=== PATIENT | male | born 1990 | race Caucasian/White ===

== ENCOUNTER 2017-06-30 10:03 | Inpatient (IN) | payer MEDICAID, OTHER ==
[~2017-06-30] VITALS: Ht 190.5 cm; Wt 64.4 kg
[2017-06-30] MEDS ORDERED: QUET25TA PO (10:13)
[2017-06-30] MEDS ORDERED: MIRT15 PO (10:13)
[2017-06-30 10:29] LABS: BASOPHILS % (AUTO) 0.3 % (0.0-2.0); EOSINOPHILS % (AUTO) 0.5 % (1.0-6.0); HEMATOCRIT 48.8 % (41-53); HEMOGLOBIN 16.5 g/dL (13.5-17.5); LYMPHOCYTES # (AUTO) 2.3 K/uL (1.0-4.8); LYMPHOCYTES % (AUTO) 14.3 % (22.0-44.0); MEAN CORPUSCULAR HEMOGLOBIN 30.2 pg (26.0-34.0); MEAN CORPUSCULAR HGB CONC 33.8 G/dL (31.0-37.0); MEAN CORPUSCULAR VOLUME 89 fL (80-100); MONOCYTES # (AUTO) 1.4 K/uL (0.1-1.0); NEUTROPHILS % (AUTO) 75.9 % (40.0-70.0); PLATELET COUNT (AUTO) 252 K/uL (150-450); RED BLOOD CELL COUNT(AUTO) 5.46 MIL/uL (4.50-5.90); RED CELL DISTRIBUTION WIDTH 14.1 % (11.5-14.5); WHITE BLOOD COUNT (AUTO) 15.8 K/uL (4.5-11.0)
[2017-06-30 10:46] LABS: ANION GAP 15 mmol/L (8-16); CALCIUM, TOTAL 9.8 mg/dL (8.8-10.5); CARBON DIOXIDE 28 mmol/L (22-29); CHLORIDE 94 mmol/L (98-107); GLOMERULAR FILTR. RATE CALC > 60 mL/min (>60); POTASSIUM 3.1 mmol/L (3.5-5.1); SODIUM SERUM 137 mmol/L (136-145); UREA NITROGEN, BLOOD 15 mg/dL (7-18)
[2017-06-30 10:52] LABS: ALANINE AMINOTRANSFERASE 31 U/L (12-78); ALBUMIN 5.7 g/dL (3.4-5.0); ASPARTATE AMINOTRANSFERASE 30 U/L (15-37); BILIRUBIN,TOTAL 1.1 mg/dL (0.1-1.0)
[2017-06-30] MEDS ORDERED: ZOLPIDEM TARTRATE 10 MG TABLET PO PRN (11:30)
[2017-06-30] MEDS ORDERED: LORazepam 2 MG/ML VIAL ONE (11:45)
[2017-06-30] MEDS ORDERED: HALOPERIDOL LACTATE 5 MG/ML VIAL ONE (11:46)
[2017-06-30] MEDS ORDERED: DiphenhydrAMINE HCL 50 MG/ML VIAL IM ONE ×2 (12:00)
[2017-06-30] MEDS ORDERED: LORazepam 2 MG/ML VIAL IM ONE ×2 (12:00)
[2017-06-30] MEDS ORDERED: HALOPERIDOL LACTATE 5 MG/ML VIAL IM ONE ×2 (12:00)
[2017-06-30 12:06] LABS: THYROID STIMULATING HORMONE 1.98 uIU/mL (0.36-3.74)
[2017-06-30] MEDS ORDERED: POTASSIUM CHLORIDE 20 MEQ ER TABLET PO ONE (12:45)
[2017-06-30 13:32] VITALS: BP 105/69
[2017-06-30] MEDS: NICOTINE 21 MG/24 HOUR PATCH TD SCH (15:00)
[2017-06-30] MEDS ORDERED: INFLUENZA VIRUS VACCINE QVS 2017-18 (3YR+)/PF 60 MCG/0.5 ML SYRINGE IM ONE (15:30)
[2017-06-30 16:04] VITALS: BP 112/72
[2017-07-01 01:16] VITALS: BP 113/71
[2017-07-01] MEDS: NICOTINE 21 MG/24 HOUR PATCH TD SCH (08:07)
[2017-07-01 08:49] VITALS: BP 129/92
[2017-07-01] MEDS: OLANZapine 5 MG TABLET PO SCH ×3 (09:15→20:25)
[2017-07-01] MEDS: ONDANSETRON HCL 4 MG TABLET PO PRN (13:33)
[2017-07-01 16:19] VITALS: BP 137/76
[2017-07-01] MEDS: HALOPERIDOL 5 MG TABLET PO PRN (16:49)
[2017-07-01] MEDS: LORazepam 2 MG TABLET PO PRN (16:49)
[2017-07-02 03:50] VITALS: BP 105/64
[2017-07-02 08:02] VITALS: BP 120/71
[2017-07-02 08:19] LABS: BASOPHILS # (AUTO) 0.04 K/uL (0.00-0.20); BASOPHILS % (AUTO) 0.4 % (0.0-2.0); EOSINOPHILS # (AUTO) 0.09 K/uL (0.00-0.70); EOSINOPHILS % (AUTO) 0.95 % (1.0-6.0); HEMATOCRIT 44.8 % (41-53); HEMOGLOBIN 14.7 g/dL (13.5-17.5); LYMPHOCYTES # (AUTO) 1.7 K/uL (1.0-4.8); MEAN CORPUSCULAR HEMOGLOBIN 29.7 pg (26.0-34.0); MEAN CORPUSCULAR HGB CONC 32.7 G/dL (31.0-37.0); MEAN CORPUSCULAR VOLUME 91 fL (80-100); NEUTROPHILS # (AUTO) 6.3 K/uL (1.8-7.7); NEUTROPHILS % (AUTO) 68.6 % (40.0-70.0); PLATELET COUNT (AUTO) 189 K/uL (150-450); RED BLOOD CELL COUNT(AUTO) 4.94 MIL/uL (4.50-5.90); RED CELL DISTRIBUTION WIDTH 13.6 % (11.5-14.5); WHITE BLOOD COUNT (AUTO) 9.2 K/uL (4.5-11.0)
[2017-07-02] MEDS: OLANZapine 5 MG TABLET PO SCH ×2 (08:21→20:32)
[2017-07-02] MEDS: NICOTINE 21 MG/24 HOUR PATCH TD SCH (08:21)
[2017-07-02 16:00] VITALS: BP 114/66
[2017-07-02] MEDS: HALOPERIDOL 5 MG TABLET PO PRN (16:16)
[2017-07-02] MEDS: LORazepam 2 MG TABLET PO PRN (16:16)
[2017-07-03 04:57] VITALS: BP 139/62
[2017-07-03] MEDS: ONDANSETRON HCL 4 MG TABLET PO PRN (06:04)
[2017-07-03 08:01] VITALS: BP 134/73
[2017-07-03] MEDS: NICOTINE 21 MG/24 HOUR PATCH TD SCH (08:31)
[2017-07-03] MEDS: HALOPERIDOL 5 MG TABLET PO PRN (08:32)
[2017-07-03] MEDS: LORazepam 2 MG TABLET PO PRN ×2 (08:32→20:42)
[2017-07-03] MEDS: OLANZapine 5 MG TABLET PO SCH (08:32)
[2017-07-03 16:00] VITALS: BP 118/68
[2017-07-03] MEDS: OLANZapine 10 MG TABLET PO SCH (20:42)
[2017-07-04 05:28] VITALS: BP 121/69
[2017-07-04] MEDS: LORazepam 2 MG TABLET PO PRN (05:29)
[2017-07-04] MEDS: ONDANSETRON HCL 4 MG TABLET PO PRN (05:29)
[2017-07-04 08:06] VITALS: BP 122/66
[2017-07-04] MEDS: OLANZapine 10 MG TABLET PO SCH (08:51)
[2017-07-04] MEDS: NICOTINE 21 MG/24 HOUR PATCH TD SCH (08:51)
[2017-07-04] MEDS ORDERED: OLAN10TA3 PO (08:59)
== END 2017-07-04 12:50 | disposition home or self-care (01) | DRG 753 ==
LOC: EMS 10:07 → B3A 12:16
DX: F31.5 Bipolar disorder, current episode depressed, severe, with psychotic features (principal); Z91.14 Patient's other noncompliance with medication regimen; F84.5 Asperger's syndrome; F12.20 Cannabis dependence, uncomplicated; F17.210 Nicotine dependence, cigarettes, uncomplicated; F90.9 Attention-deficit hyperactivity disorder, unspecified type; G47.00 Insomnia, unspecified; L72.3 Sebaceous cyst; R48.0 Dyslexia and alexia; Z91.5 Personal history of self-harm; Z28.21 Immunization not carried out because of patient refusal; Z68.1 Body mass index [BMI] 19.9 or less, adult
CPT/HCPCS: 84132; 84439; 84443; 90471; 96372; 99285; G0480; J1200; J1630; J2060; Q0162

== ENCOUNTER 2017-07-31 11:26 | Inpatient (IN) | payer MEDICAID ==
[~2017-07-31] VITALS: Ht 193 cm; Wt 62.0 kg
[~2017-07-31 11:26] MED LIST: OLAN10TA3 PO
[2017-07-31 14:35] VITALS: BP 120/59
[2017-07-31 14:48] VITALS: BP 112/71
[2017-07-31] MEDS ORDERED: LITH600 PO (15:01)
[2017-07-31] MEDS ORDERED: LITH300C3 PO (15:01)
[2017-07-31 17:16] VITALS: BP 118/64
[2017-07-31] MEDS ORDERED: INFLUENZA VIRUS VACCINE QVS 2017-18 (3YR+)/PF 60 MCG/0.5 ML SYRINGE IM ONE (17:45)
[2017-07-31] MEDS: OLANZapine 10 MG TABLET PO SCH (20:43)
[2017-07-31] MEDS: LITHIUM CARBONATE 600 MG CAPSULE PO SCH (20:43)
[2017-07-31] MEDS: ZOLPIDEM TARTRATE 10 MG TABLET PO PRN (20:43)
[2017-07-31] MEDS: LORazepam 2 MG TABLET PO PRN (20:43)
[2017-08-01 06:36] VITALS: BP 121/68
[2017-08-01 08:09] VITALS: BP 107/69
[2017-08-01 08:22] LABS: LITHIUM 0.55 mmol/L (0.60-1.20)
[2017-08-01 08:30] LABS: BASOPHILS % (AUTO) 0.4 % (0.0-2.0); EOSINOPHILS % (AUTO) 1.4 % (1.0-6.0); HEMATOCRIT 48.1 % (41-53); HEMOGLOBIN 15.8 g/dL (13.5-17.5); LYMPHOCYTES # (AUTO) 1.9 K/uL (1.0-4.8); LYMPHOCYTES % (AUTO) 17.8 % (22.0-44.0); MEAN CORPUSCULAR HGB CONC 32.8 G/dL (31.0-37.0); MEAN CORPUSCULAR VOLUME 91 fL (80-100); MONOCYTES # (AUTO) 0.6 K/uL (0.1-1.0); MONOCYTES % (AUTO) 5.8 % (2.0-9.0); NEUTROPHILS # (AUTO) 8.2 K/uL (1.8-7.7); NEUTROPHILS % (AUTO) 74.6 % (40.0-70.0); PLATELET COUNT (AUTO) 229 K/uL (150-450); RED BLOOD CELL COUNT(AUTO) 5.26 MIL/uL (4.50-5.90); RED CELL DISTRIBUTION WIDTH 13.7 % (11.5-14.5)
[2017-08-01 08:37] LABS: ALANINE AMINOTRANSFERASE 40 U/L (12-78); ALBUMIN 4.5 g/dL (3.4-5.0); ALKALINE PHOSPHATASE 62 U/L (46-116); ANION GAP 7 mmol/L (8-16); ASPARTATE AMINOTRANSFERASE 41 U/L (15-37); BILIRUBIN,TOTAL 0.8 mg/dL (0.1-1.0); CALCIUM, TOTAL 9.2 mg/dL (8.8-10.5); CARBON DIOXIDE 30 mmol/L (22-29); CHLORIDE 103 mmol/L (98-107); CHOL/HDL RATIO 2.4 (4.2-7.3); CHOLESTEROL 122 mg/dL (131-200); CREATININE 1.01 mg/dL (0.60-1.30); FREE T4 (FREE THYROXINE) 1.36 ng/dL (0.76-1.46); GLOMERULAR FILTR. RATE CALC > 60 mL/min (>60); GLUCOSE,RANDOM 107 mg/dL (70-110); HDL CHOLESTEROL 50 mg/dL (40-60); LDL CHOL (CALC.) 57 mg/dL (0-130); POTASSIUM 4.4 mmol/L (3.5-5.1); SODIUM SERUM 140 mmol/L (136-145); THYROID STIMULATING HORMONE 1.76 uIU/mL (0.36-3.74); TOTAL PROTEIN, SERUM 7.7 g/dL (6.4-8.2); TRIGLYCERIDES 75 mg/dL (15-150); UREA NITROGEN, BLOOD 13 mg/dL (7-18)
[2017-08-01 08:56] LABS: HEMOGLOBIN A1C 5.3 % (4.5-6.2)
[2017-08-01] MEDS: OLANZapine 10 MG TABLET PO SCH ×2 (09:01→20:33)
[2017-08-01] MEDS: LITHIUM CARBONATE 300 MG CAPSULE PO SCH (09:01)
[2017-08-01] MEDS: LORazepam 2 MG TABLET PO PRN ×2 (09:01→20:33)
[2017-08-01] MEDS: NICOTINE 21 MG/24 HOUR PATCH TD SCH (09:02)
[2017-08-01 16:10] VITALS: BP 128/68
[2017-08-01] MEDS: LITHIUM CARBONATE 600 MG CAPSULE PO SCH (20:33)
[2017-08-02 06:15] VITALS: BP 115/60
[2017-08-02] MEDS: LORazepam 2 MG TABLET PO PRN ×3 (09:12→20:32)
[2017-08-02] MEDS: OLANZapine 10 MG TABLET PO SCH ×2 (09:12→20:32)
[2017-08-02] MEDS: LITHIUM CARBONATE 300 MG CAPSULE PO SCH (09:12)
[2017-08-02] MEDS: NICOTINE 21 MG/24 HOUR PATCH TD SCH (09:13)
[2017-08-02 09:32] VITALS: BP 116/62
[2017-08-02] MEDS: HALOPERIDOL 5 MG TABLET PO PRN (13:51)
[2017-08-02 16:36] VITALS: BP 118/72
[2017-08-02] MEDS: LITHIUM CARBONATE 600 MG CAPSULE PO SCH (20:32)
[2017-08-02] MEDS: ZOLPIDEM TARTRATE 10 MG TABLET PO PRN (20:32)
[2017-08-03 03:28] VITALS: BP 111/72
[2017-08-03] MEDS: LORazepam 2 MG TABLET PO PRN ×3 (04:18→17:12)
[2017-08-03] MEDS: HALOPERIDOL 5 MG TABLET PO PRN ×2 (04:18→17:12)
[2017-08-03 08:31] VITALS: BP 117/64
[2017-08-03] MEDS: NICOTINE 21 MG/24 HOUR PATCH TD SCH (09:38)
[2017-08-03] MEDS: LITHIUM CARBONATE 300 MG CAPSULE PO SCH (09:38)
[2017-08-03] MEDS: OLANZapine 10 MG TABLET PO SCH ×2 (09:39→20:22)
[2017-08-03 16:04] VITALS: BP 111/66
[2017-08-03] MEDS: LITHIUM CARBONATE 600 MG CAPSULE PO SCH (20:22)
[2017-08-04 06:11] VITALS: BP 118/72
[2017-08-04 08:11] VITALS: BP 108/65
[2017-08-04] MEDS: LORazepam 2 MG TABLET PO PRN ×2 (09:28→17:20)
[2017-08-04] MEDS: OLANZapine 10 MG TABLET PO SCH ×2 (09:28→20:42)
[2017-08-04] MEDS: LITHIUM CARBONATE 300 MG CAPSULE PO SCH (09:28)
[2017-08-04] MEDS: HALOPERIDOL 5 MG TABLET PO PRN ×2 (09:28→17:20)
[2017-08-04] MEDS: NICOTINE 21 MG/24 HOUR PATCH TD SCH (09:29)
[2017-08-04 16:06] VITALS: BP 146/70
[2017-08-04 16:30] VITALS: BP 133/72
[2017-08-04] MEDS: ZOLPIDEM TARTRATE 10 MG TABLET PO PRN (20:42)
[2017-08-04] MEDS: LITHIUM CARBONATE 600 MG CAPSULE PO SCH (20:42)
[2017-08-05 00:45] VITALS: BP 100/61
[2017-08-05 08:13] VITALS: BP 120/78
[2017-08-05] MEDS: LITHIUM CARBONATE 300 MG CAPSULE PO SCH (08:21)
[2017-08-05] MEDS: NICOTINE 21 MG/24 HOUR PATCH TD SCH (08:21)
[2017-08-05] MEDS: OLANZapine 10 MG TABLET PO SCH (08:26)
[2017-08-05] MEDS ORDERED: SERTRALINE HCL 50 MG TABLET PO SCH (09:00)
[2017-08-05] MEDS ORDERED: OLAN10TA20 PO (12:02)
[2017-08-05] MEDS ORDERED: LITH300C3 PO (12:06)
[2017-08-05] MEDS ORDERED: LITH600 PO (12:06)
== END 2017-08-05 14:45 | disposition home or self-care (01) | DRG 753 ==
LOC: B3A 14:28 → B2S 08-04 21:56
DX: F31.2 Bipolar disorder, current episode manic severe with psychotic features (principal); F84.5 Asperger's syndrome; F41.9 Anxiety disorder, unspecified; F17.210 Nicotine dependence, cigarettes, uncomplicated; F12.90 Cannabis use, unspecified, uncomplicated; L72.3 Sebaceous cyst; Z79.899 Other long term (current) drug therapy; Z28.21 Immunization not carried out because of patient refusal
CPT/HCPCS: 83036; 84439; 84443

== ENCOUNTER 2019-06-30 08:17 | Inpatient (IN) | payer MEDICAID ==
[~2019-06-30] VITALS: Ht 185.4 cm; Wt 66.0 kg
[~2019-06-30 08:17] MED LIST changes: +LITH300C3 PO; +LITH600 PO
[2019-06-30 09:01] VITALS: BP 145/82
[2019-06-30] MEDS ORDERED: no medication NOTE (09:12)
[2019-06-30] MEDS ORDERED: ZOLPIDEM TARTRATE 10 MG TABLET PO PRN (09:15)
[2019-06-30] MEDS ORDERED: HALOPERIDOL 5 MG TABLET PO PRN (09:15)
[2019-06-30 10:23] VITALS: BP 123/70
[2019-06-30] MEDS ORDERED: GuaiFENesin/D-METHORPHAN/PHENYLEPH 5 ML LIQUID ORAL.SYG PO PRN (10:30)
[2019-06-30] MEDS ORDERED: INFLUENZA VIRUS VACCINE QVS 2019-20 (3YR+)/PF 60 MCG/0.5 ML SYRINGE IM ONE (11:15)
[2019-06-30 16:07] VITALS: BP 116/57
[2019-06-30] MEDS: AMOX TR/POT CLAV 875 MG/125 MG TABLET PO SCH (17:47)
[2019-06-30 17:50] VITALS: BP 111/68
[2019-07-01 06:07] VITALS: BP 129/78
[2019-07-01 08:15] LABS: BASOPHILS % (AUTO) 0.5 % (0.0-2.0); HEMATOCRIT 42.9 % (41-53); HEMOGLOBIN 14.5 g/dL (13.5-17.5); LYMPHOCYTES % (AUTO) 9.6 % (22.0-44.0); MEAN CORPUSCULAR HEMOGLOBIN 29.8 pg (26.0-34.0); MEAN CORPUSCULAR HGB CONC 33.7 G/dL (31.0-37.0); MEAN CORPUSCULAR VOLUME 89 fL (80-100); MONOCYTES # (AUTO) 1.1 K/uL (0.1-1.0); MONOCYTES % (AUTO) 10.9 % (2.0-9.0); NEUTROPHILS # (AUTO) 8.2 K/uL (1.8-7.7); PLATELET COUNT (AUTO) 259 K/uL (150-450); RED BLOOD CELL COUNT(AUTO) 4.85 MIL/uL (4.50-5.90); RED CELL DISTRIBUTION WIDTH 14.5 % (11.5-14.5)
[2019-07-01 08:21] VITALS: BP 118/82
[2019-07-01 08:42] LABS: ALANINE AMINOTRANSFERASE 23 U/L (12-78); ALBUMIN 3.5 g/dL (3.4-5.0); ALKALINE PHOSPHATASE 90 U/L (46-116); ANION GAP 7 mmol/L (8-16); ASPARTATE AMINOTRANSFERASE 13 U/L (15-37); BILIRUBIN,TOTAL 0.5 mg/dL (0.1-1.0); CALCIUM, TOTAL 8.7 mg/dL (8.8-10.5); CARBON DIOXIDE 28 mmol/L (22-29); CHLORIDE 103 mmol/L (98-107); CREATININE 0.76 mg/dL (0.60-1.30); GLOMERULAR FILTR. RATE CALC > 60 mL/min (>60); GLUCOSE,RANDOM 85 mg/dL (70-110); POTASSIUM 4.1 mmol/L (3.5-5.1); SODIUM SERUM 138 mmol/L (136-145); TOTAL PROTEIN, SERUM 7.2 g/dL (6.4-8.2); UREA NITROGEN, BLOOD 13 mg/dL (7-18)
[2019-07-01] MEDS: AMOX TR/POT CLAV 875 MG/125 MG TABLET PO SCH ×2 (08:56→16:21)
[2019-07-01] MEDS: LORazepam 2 MG TABLET PO PRN (16:21)
[2019-07-01 16:27] VITALS: BP 130/67
[2019-07-02 06:28] VITALS: BP 122/71
[2019-07-02 08:33] VITALS: BP 118/65
[2019-07-02] MEDS: AMOX TR/POT CLAV 875 MG/125 MG TABLET PO SCH ×2 (09:27→16:32)
[2019-07-02 16:11] VITALS: BP 116/75
[2019-07-02] MEDS: LORazepam 2 MG TABLET PO PRN (16:32)
[2019-07-03 05:48] VITALS: BP 118/87
[2019-07-03] MEDS: AMOX TR/POT CLAV 875 MG/125 MG TABLET PO SCH ×2 (08:18→16:10)
[2019-07-03 08:25] VITALS: BP 119/65
[2019-07-03] MEDS: LITHIUM CARBONATE 300 MG CAPSULE PO SCH ×2 (11:27→16:09)
[2019-07-03] MEDS: OLANZapine 10 MG TABLET PO SCH ×2 (11:27→16:09)
[2019-07-03 16:19] VITALS: BP 104/54
[2019-07-04 08:43] VITALS: BP 149/83
[2019-07-04] MEDS: AMOX TR/POT CLAV 875 MG/125 MG TABLET PO SCH ×2 (08:56→16:30)
[2019-07-04] MEDS: LITHIUM CARBONATE 300 MG CAPSULE PO SCH ×2 (08:56→16:30)
[2019-07-04] MEDS: OLANZapine 10 MG TABLET PO SCH ×2 (08:56→16:30)
[2019-07-04 16:15] VITALS: BP 110/66
[2019-07-05 06:08] VITALS: BP 140/77
[2019-07-05 08:23] VITALS: BP 116/60
[2019-07-05] MEDS ORDERED: LITH300C3 PO (08:54)
[2019-07-05] MEDS ORDERED: OLAN10TA20 PO (08:54)
[2019-07-05] MEDS: AMOX TR/POT CLAV 875 MG/125 MG TABLET PO SCH (09:09)
[2019-07-05] MEDS: OLANZapine 10 MG TABLET PO SCH (09:09)
[2019-07-05] MEDS: LITHIUM CARBONATE 300 MG CAPSULE PO SCH (09:11)
== END 2019-07-05 13:55 | disposition home or self-care (01) | DRG 750 ==
LOC: B2S 09:27 → B3A 16:06
PROVIDERS: ADMIT Psychiatry & Neurology Child & Adolescent Psychiatry; ATTEND Psychiatry & Neurology Child & Adolescent Psychiatry
DX: F20.0 Paranoid schizophrenia (principal); F12.90 Cannabis use, unspecified, uncomplicated; F84.5 Asperger's syndrome; R48.0 Dyslexia and alexia; F41.9 Anxiety disorder, unspecified

== ENCOUNTER 2019-09-18 11:47 | Inpatient (IN) | payer MEDICAID ==
[~2019-09-18] VITALS: Ht 185.4 cm; Wt 65.4 kg
[~2019-09-18 11:47] MED LIST changes: -LITH600 PO; +OLAN10TA20 PO; -OLAN10TA3 PO
[2019-09-18] MEDS ORDERED: LITH300C3 PO (14:37)
[2019-09-18] MEDS ORDERED: OLAN5TAB2 PO (14:37)
[2019-09-18] MEDS ORDERED: ZOLPIDEM TARTRATE 10 MG TABLET PO PRN (15:15)
[2019-09-18] MEDS ORDERED: HALOPERIDOL 5 MG TABLET PO PRN (15:15)
[2019-09-18 15:17] VITALS: BP 114/58
[2019-09-18 16:25] VITALS: BP 118/62
[2019-09-18] MEDS ORDERED: ALBUTEROL SULFATE HFA 90 MCG/PUFF 8 GM INHALER IH PRN (21:15)
[2019-09-18] MEDS ORDERED: LOPERAMIDE HCL 2 MG CAPSULE PO PRN (21:15)
[2019-09-18] MEDS ORDERED: IBUPROFEN 400 MG TABLET PO PRN (21:15)
[2019-09-18] MEDS ORDERED: CloNIDine HCL 0.1 MG TABLET PO PRN (21:15)
[2019-09-18] MEDS ORDERED: PETROLATUM,WHITE 28 GM JELLY TP PRN (21:15)
[2019-09-18] MEDS ORDERED: DOCUSATE SODIUM 100 MG CAPSULE PO PRN (21:15)
[2019-09-18] MEDS ORDERED: MAGNESIUM HYDROXIDE SUSPENSION 30 ML UDCUP PO PRN (21:15)
[2019-09-18] MEDS ORDERED: NICOTINE 14 MG/24 HOUR PATCH TD PRN (21:15)
[2019-09-18] MEDS ORDERED: ACETAMINOPHEN 325 MG TABLET PO PRN (21:15)
[2019-09-18] MEDS ORDERED: MAG HYDROX/AL HYDROX/SIMETH ES 30 ML SUSPENSION UDCUP PO PRN (21:15)
[2019-09-18] MEDS ORDERED: ONDANSETRON HCL 4 MG TABLET PO PRN (21:15)
[2019-09-18] MEDS ORDERED: GuaiFENesin/D-METHORPHAN [SUGAR-FREE] 200-20MG/10 ML SYRUP UDCUP PO PRN (21:15)
[2019-09-19 05:59] VITALS: BP 112/68
[2019-09-19 08:19] VITALS: BP 109/67
[2019-09-19] MEDS: OLANZapine 5 MG TABLET PO SCH ×2 (10:54→16:50)
[2019-09-19] MEDS: LITHIUM CARBONATE 300 MG CAPSULE PO SCH ×2 (10:54→16:50)
[2019-09-19 17:00] VITALS: BP 116/64
[2019-09-20 06:47] VITALS: BP 126/64
[2019-09-20 08:02] VITALS: BP 108/63
[2019-09-20] MEDS: OLANZapine 5 MG TABLET PO SCH ×2 (08:32→16:36)
[2019-09-20] MEDS: LITHIUM CARBONATE 300 MG CAPSULE PO SCH ×2 (08:32→16:36)
[2019-09-20 16:04] VITALS: BP 122/69
[2019-09-20] MEDS: LORazepam 2 MG TABLET PO PRN (16:36)
[2019-09-21 06:32] VITALS: BP 111/77
[2019-09-21 08:01] VITALS: BP 103/69
[2019-09-21] MEDS: LITHIUM CARBONATE 300 MG CAPSULE PO SCH ×2 (08:19→17:27)
[2019-09-21] MEDS: OLANZapine 5 MG TABLET PO SCH ×2 (08:19→17:27)
[2019-09-21 16:14] VITALS: BP 106/65
[2019-09-22 05:36] VITALS: BP 105/46
[2019-09-22] MEDS: LITHIUM CARBONATE 300 MG CAPSULE PO SCH ×2 (08:55→16:27)
[2019-09-22] MEDS: OLANZapine 5 MG TABLET PO SCH ×2 (08:55→16:27)
[2019-09-22 15:04] VITALS: BP 117/62
[2019-09-22 16:05] VITALS: BP 111/63
[2019-09-22] MEDS: LORazepam 2 MG TABLET PO PRN (16:27)
[2019-09-23 06:03] VITALS: BP 121/75
[2019-09-23] MEDS: OLANZapine 5 MG TABLET PO SCH (08:17)
[2019-09-23] MEDS: LITHIUM CARBONATE 300 MG CAPSULE PO SCH (08:17)
[2019-09-23 08:24] VITALS: BP 102/61
== END 2019-09-23 16:44 | disposition home or self-care (01) | DRG 750 ==
LOC: B3A 15:16
PROVIDERS: ADMIT Psychiatry & Neurology Psychiatry; ATTEND Psychiatry & Neurology Psychiatry
DX: F25.9 Schizoaffective disorder, unspecified (principal); Z78.1 Physical restraint status; F17.210 Nicotine dependence, cigarettes, uncomplicated; F31.9 Bipolar disorder, unspecified; F84.5 Asperger's syndrome; M19.90 Unspecified osteoarthritis, unspecified site; R48.0 Dyslexia and alexia; F41.9 Anxiety disorder, unspecified; F90.9 Attention-deficit hyperactivity disorder, unspecified type
CPT/HCPCS: 84439; 84443; 87081